=== PATIENT | female | born 1955 | race Caucasian/White ===

== ENCOUNTER 2020-02-08 08:16 | Emergency (ER) | payer MEDICAID ==
[~2020-02-08] VITALS: Ht 175.3 cm; Wt 75.0 kg
--- NOTE | 2020-02-08 08:28 | NUR ---
PATIENT WHEELED BACK FROM TRIAGE WITH CHIEF C/O LEFT SHOULDER PAIN AND SWELLING. PATIENT STATES SHE HAD BACK SURGERY X2 WITHIN THE LAST YEAR, AND HAS A "SCREW FLOATING AROUND MY BACK." THE LAST BACK SURGERY CAUSED NERVE ISSUES, AND PATIENT STATES SHE IS UNABLE TO WALK RIGHT NOW. PATIENT IS SUPPOSED TO HAVE ANOTHER BACK SURGERY AT SOME POINT. PATIENT STATES LAST NIGHT HER LEFT SHOULDER "DOUBLED IN SIZE AND STARTING HURTING." PATIENT REPORTS PAIN LEVEL IS A 10/10 IN THE LEFT SHOULDER.
[2020-02-08] MEDS ORDERED: ONDANSETRON 2MG/ML, 2ML IVPush ONE (09:00)
[2020-02-08] MEDS ORDERED: SODIUM CHLORIDE 0.9% 1,000 ML IV ONE (09:00)
[2020-02-08] MEDS ORDERED: ONDANSETRON 2MG/ML, 2ML ONE (09:03)
[2020-02-08] MEDS ORDERED: MORPHINE SULFATE 4 MG/ML, 1ML ONE ×4 (09:03→14:29)
[2020-02-08] MEDS: MORPHINE SULFATE 4 MG/ML, 1ML IVPush PRN ×4 (09:18→14:31)
--- NOTE | 2020-02-08 09:26 | NUR ---
22 GAUGE IV STARTED LEFT WRIST, AND BLOOD SENT TO LAB. PATIENT MEDICATED PER eMAR, NADN, VSS, CALL LIGHT WITHIN REACH.
[2020-02-08 09:35] LABS: BASOPHILS % (AUTO) 1 % (0-1); EOSINOPHILS % (AUTO) 1 % (1-7); LYMPHOCYTES % (AUTO) 16 % (22-44); MEAN CORPUSCULAR HEMOGLOBIN 30.2 pg (27.0-34.8); MEAN CORPUSCULAR HGB CONC 33.9 g/dL (32.4-35.8); MEAN PLATELET VOLUME 8.4 fL (7.4-10.4); MONOCYTES % (AUTO) 6 % (2-9); NEUTROPHILS % (AUTO) 77 % (42-75); PLATELET COUNT 417 x10^3/uL (130-400); RED BLOOD COUNT 5.19 x10^6/uL (3.82-5.3); RED CELL DISTRIBUTION WIDTH 16.8 % (9.6-15.2)
[2020-02-08 09:37] LABS: HCT (SEDRATE) 46.2 % (34.6-47.8); MD NO
--- NOTE | 2020-02-08 09:58 | NUR ---
PATIENT TO IMAGING.
[2020-02-08 10:30] LABS: ALBUMIN 3.5 g/dL (3.4-5.0); ANION GAP 3 mmol/L (5-15); CALCIUM 10.2 mg/dL (8.5-10.1); CHLORIDE 108 mmol/L (98-107); CREATININE 0.73 mg/dL (0.55-1.02)
--- NOTE | 2020-02-08 10:42 | NUR ---
PATIENT MEDICATED PER eMAR, MICHAELN, VSS, AT BEDSIDE, CALL LIGHT WITHIN REACH, NO FURTHER NEEDS AT THIS TIME.
--- NOTE | 2020-02-08 10:59 | NUR ---
RECEIVED REPORT FROM ZOFIA CARBAJAL. ASSUMING CARE AT THIS TIME.
--- NOTE | 2020-02-08 11:30 | NUR ---
ALL RESULTS ARE BACK AT THIS TIME. CHART UP FOR RECHECK.
[2020-02-08] MEDS ORDERED: LIDOCAINE-MPF 1%, 5ML ONE (11:45)
--- NOTE | 2020-02-08 11:52 | NUR ---
SUPPLIES AND CONSENT SIGNED AND IN ROOM FOR LEFT SHOULDER ARTHROCENTESIS.
--- NOTE | 2020-02-08 12:50 | NUR ---
BREAK RN: LATE ENTRY DUE TO PATIENT CARE. PROVIDER REQUESTING 4 MG MORPHINE FOR PATIENT FOR PROCEDURE, PATIENT HAS ALREADY HAD 2 DOSES OF ORIGINAL ORDER. ERMD OKAY'D ANOTHER DOSE. ADMINISTERED 4 MG MORPHINE IV, WITH ERMD AT BEDSIDE.
[2020-02-08 14:57] VITALS: BP 135/85
== END 2020-02-08 15:00 | disposition home or self-care (01) ==
LOC: ED 08:44
DX: M13.112 Monoarthritis, not elsewhere classified, left shoulder (principal); M25.012 Hemarthrosis, left shoulder; R07.89 Other chest pain; M54.5 Low back pain
CPT/HCPCS: 20611; 36415; 71045; 73030; 73200; 80048; 82040; 82945; 84550; 85025; 85651; 85810; 87070; 87205; 89050; 89060; 96361; 96374; 96375; 96376; 99285; J2270; J2405; J7030

== ENCOUNTER 2020-02-27 15:10 | Emergency (ER) | payer MEDICAID ==
[2020-02-27 15:13] VITALS: BP 178/123
[2020-02-27] MEDS ORDERED: MORPHINE SULFATE 4 MG/ML, 1ML ONE (15:50)
[2020-02-27] MEDS ORDERED: ONDANSETRON 2MG/ML, 2ML ONE (15:50)
[2020-02-27] MEDS ORDERED: SODIUM CHLORIDE FLUSH 10ML SYR IVF ONE (16:00)
[2020-02-27] MEDS ORDERED: MORPHINE SULFATE 4 MG/ML, 1ML IVPush PRN (16:00)
[2020-02-27] MEDS ORDERED: ONDANSETRON 2MG/ML, 2ML IVPush ONE (16:00)
--- NOTE | 2020-02-27 16:32 | NUR ---
PT STATES PAIN IS MUCH BETTER "EXCEPT THIS IV IN MY ARM". PT AND SPOUSE GIVEN D/C INSTRUCTIONS AND EDUCATION.
== END 2020-02-27 16:50 | disposition home or self-care (01) ==
LOC: ED 16:21
DX: G89.29 Other chronic pain (principal); M54.5 Low back pain; M54.6 Pain in thoracic spine
CPT/HCPCS: 96374; 96375; 99284; J2270; J2405

== ENCOUNTER 2020-03-08 12:08 | Emergency (ER) | payer MEDICAID ==
[~2020-03-08] VITALS: Ht 175.3 cm; Wt 75.0 kg
--- NOTE | 2020-03-08 13:20 | NUR ---
PT LAYING IN BED, PAIN 09/24, VSS, STATES SHE WAS HERE 2 WEEKS AGO AND WAS TOLD THE HARDWARE IN HER BACK WAS " LOOSE, AND FEELS IF THEY HAVE TO SHIFTE TO THE OTHER SIDE.
[2020-03-08] MEDS ORDERED: OXYcodone/APAP 10/325MG TABLET ONE (13:40)
--- NOTE | 2020-03-08 13:45 | NUR ---
PT UP TO BATHROOM, ADMIN PAIN MEDS, VSS, HUSBEN AT BED SIDE
[2020-03-08] MEDS ORDERED: OXYcodone/APAP 10/325MG TABLET PO ONE (14:00)
[2020-03-08 14:22] VITALS: BP 164/92
== END 2020-03-08 15:22 | disposition home or self-care (01) ==
LOC: ED 14:07
DX: G89.29 Other chronic pain (principal); M54.6 Pain in thoracic spine; F11.23 Opioid dependence with withdrawal; R20.0 Anesthesia of skin; R11.0 Nausea; R19.7 Diarrhea, unspecified
CPT/HCPCS: 99283

== ENCOUNTER 2020-03-08 19:16 | Emergency (ER) | payer MEDICAID ==
[~2020-03-08] VITALS: Ht 175.3 cm; Wt 75.0 kg
[2020-03-08] MEDS ORDERED: METHOCARBAMOL 750 MG TABLET PO ONE (20:00)
[2020-03-08] MEDS ORDERED: OXYcodone/APAP 10/325MG TABLET PO ONE (20:00)
[2020-03-08] MEDS ORDERED: OXYcodone/APAP 10/325MG TABLET ONE (20:22)
[2020-03-08] MEDS ORDERED: METHOCARBAMOL 750 MG TABLET ONE (20:22)
--- NOTE | 2020-03-08 20:27 | NUR ---
pt in bed no distress
--- NOTE | 2020-03-08 20:36 | NUR ---
PT LAYING IN BED, PAIN 09/24, VSS, STATES SHE WAS HERE 2 WEEKS AGO AND WAS TOLD THE HARDWARE IN HER BACK WAS " LOOSE, AND FEELS IF THEY HAVE TO SHIFTE TO THE OTHER SIDE. THIS IS THE 2ND VISIT TODAY. PATIENT IS FRUSTRATED THAT SHE "CANT MANAGE HER PAIN AND CAN NOT SEEM TO GET TO OR"
--- NOTE | 2020-03-08 20:51 | NUR ---
PT BACK FROM CT
--- NOTE | 2020-03-08 21:15 | NUR ---
pt in bed no distress
--- NOTE | 2020-03-08 21:39 | NUR ---
pt sitting up at side of bed, no distress
[2020-03-08 22:23] VITALS: BP 157/90
--- NOTE | 2020-03-08 22:24 | NUR ---
PT DC'D WITH WRITTEN AND VERBAL INSTRCTIONS. MEDICATIONS AND RISKS GONE OVER WITH PATIENT. PT AND STATE THEY UNDERSTAND. PT A&o AND OUT OF DEPT IN WITHOUT DIFFICULTY.
== END 2020-03-08 22:26 | disposition home or self-care (01) ==
LOC: ED 21:46
DX: M54.5 Low back pain (principal); M19.90 Unspecified osteoarthritis, unspecified site; Z87.891 Personal history of nicotine dependence
CPT/HCPCS: 72131; 99285

== ENCOUNTER 2020-07-16 18:23 | Emergency (ER) | payer MEDICAID ==
[~2020-07-16] VITALS: Ht 175.3 cm; Wt 75.0 kg
[2020-07-16 18:37] VITALS: BP 143/108
== END 2020-07-16 19:29 | disposition home or self-care (01) ==
LOC: ED 19:23
DX: G47.00 Insomnia, unspecified (principal); M54.9 Dorsalgia, unspecified; G89.29 Other chronic pain; Z76.0 Encounter for issue of repeat prescription; M19.90 Unspecified osteoarthritis, unspecified site
CPT/HCPCS: 99281

== ENCOUNTER 2020-10-08 09:05 | Emergency (ER) | payer MEDICAID ==
[~2020-10-08] VITALS: Ht 175.3 cm; Wt 78.0 kg
[2020-10-08] MEDS ORDERED: KETOROLAC 30 MG/1 ML ONE (09:43)
[2020-10-08] MEDS ORDERED: HYDROmorphone 2 MG/ML, 1ML ONE ×2 (09:44→13:05)
[2020-10-08] MEDS ORDERED: ONDANSETRON 2MG/ML, 2ML ONE (09:44)
[2020-10-08] MEDS ORDERED: ONDANSETRON 2MG/ML, 2ML IVPush ONE (10:00)
[2020-10-08] MEDS ORDERED: HYDROmorphone 2 MG/ML, 1ML IV ONE ×2 (10:00→13:00)
[2020-10-08] MEDS ORDERED: KETOROLAC 30 MG/1 ML IVPush ONE (10:00)
[2020-10-08 10:03] LABS: BASOPHILS % (AUTO) 1 % (0-1); EOSINOPHILS % (AUTO) 1 % (1-7); LYMPHOCYTES % (AUTO) 13 % (22-44); MEAN CORPUSCULAR HEMOGLOBIN 23.8 pg (27.0-34.8); MEAN CORPUSCULAR HGB CONC 32.5 g/dL (32.4-35.8); MEAN PLATELET VOLUME 6.7 fL (7.4-10.4); MONOCYTES % (AUTO) 6 % (2-9); NEUTROPHILS % (AUTO) 80 % (42-75); PLATELET COUNT 640 x10^3/uL (130-400); RED BLOOD COUNT 5.38 x10^6/uL (3.82-5.3); RED CELL DISTRIBUTION WIDTH 22.5 % (9.6-15.2)
--- NOTE | 2020-10-08 10:09 | NUR ---
IV STARTED, LABS DRAWN, UA COLLECTED MEDS ADMINISTERED. PT C/O BACK PAIN CONSTANTLY SINCE SURGERY INCREASED RECENTLY. PT SPEAKING IN FULL SENTENCES. AT BEDSIDE.
[2020-10-08 10:14] LABS: ALBUMIN 3.6 g/dL (3.4-5.0); ANION GAP 5 mmol/L (5-15); CALCIUM 9.8 mg/dL (8.5-10.1); CHLORIDE 97 mmol/L (98-107); CREATININE 0.71 mg/dL (0.55-1.02)
[2020-10-08 10:24] LABS: MICROSCOPIC AUTO
--- NOTE | 2020-10-08 11:02 | NUR ---
PT LAYING ON SIDE IN BED. NAD NOTED AT THIS TIME. PT REPORTS CONTINUED PAIN BUT THAT THE MEDICATIONS ARE HELPING HER "PANT" LESS. SIDE RAILS UP, CALL LIGHT IN REACH. REMAINS AT BEDSIDE.
--- NOTE | 2020-10-08 12:10 | NUR ---
IVF INFUSING PER EMAR. PT LAYING ON SIDE. RESPIRATIONS EVEN AND UNLABORED ON RA. AT BEDSIDE. SIDE RAILS UP, CALL LIGHT IN REACH.
[2020-10-08] MEDS ORDERED: CEFTRIAXONE 1,000 MG in DEXTROSE 5% 50 ML IVPB ONE (12:30)
[2020-10-08 13:11] VITALS: BP 153/94
--- NOTE | 2020-10-08 13:17 | NUR ---
REPORT TO RAVEN RIVERA.
--- NOTE | 2020-10-08 13:19 | NUR ---
PT UP TO BATHROOM WITH .
--- NOTE | 2020-10-08 13:26 | NUR ---
REPORT FROM RAVEN MCNAIR. PT BACK TO ROOM FROM RESTROOM VIA WC WITH .
== END 2020-10-08 13:38 | disposition home or self-care (01) ==
LOC: ED 09:09
DX: N10 Acute pyelonephritis (principal); N39.0 Urinary tract infection, site not specified; M54.5 Low back pain; G89.29 Other chronic pain
CPT/HCPCS: 36415; 74176; 80048; 81001; 82040; 85025; 87086; 96365; 96375; 96376; 99285; J0696; J1170; J1885; J2405